=== PATIENT | male | born 1945 | race Caucasian/White ===

== ENCOUNTER 2017-10-31 15:29 | Inpatient (IN) | payer MEDICARE, OTHER ==
[~2017-10-31] VITALS: Ht 162.6 cm; Wt 80.6 kg
[2017-10-31] MEDS ORDERED: SODIUM CHLORIDE 0.9% 1,000 ML IVB ONE (15:46)
[2017-10-31 16:19] LABS: Basophils # (auto) 0 uL; Basophils % (auto) 0.6 % (0.0-2.0); Eosinophils # (auto) 0.1 uL; Eosinophils % (auto) 1.6 % (0.0-7.0); Hemoglobin 14.8 g/dL (13.5-17.5); Lymphocytes # (auto) 1.9 uL; Mean Corpuscular Hemoglobin 32.4 pg (28.0-32.0); Mean Corpuscular Hgb Conc. 33.5 g/dL (32.0-36.0); Mean Corpuscular Volume 96.7 fL (80.0-100.0); Monocytes # (auto) 0.6 uL; Monocytes % (auto) 9.8 % (0.0-12.0); Neutrophils # (auto) 3.9 uL; Nucleated Red Blood Cells % 0.1 %; Platelet Count (auto) 235 10^3/uL (140-450); Red Blood Cells 4.55 10^6/uL (4.5-5.90); Red Cell Distribution Width 14.2 % (11.8-14.3); White Blood Cell 6.6 10^3/uL (4.4-10.8)
[2017-10-31 16:38] LABS: Albumin 3.9 g/dL (3.4-5.0); BUN/Creatinine Ratio 15.8; Bilirubin, Total 0.2 mg/dL (0.2-1.0); Magnesium 2.3 mg/dL (1.6-2.6); Potassium 4.2 mmol/L (3.5-5.1); Total Protein 7.1 g/dL (6.4-8.2)
[2017-10-31 17:25] LABS: Calcium 9.2 mg/dL (8.5-10.1)
[2017-10-31 17:28] LABS: INR 0.95 (0.9-1.15); Partial Thromboplastin Time 26.6 sec (23.78-33.04); Prothrombin Time 10.2 sec (9.27-12.13)
[2017-10-31] MEDS ORDERED: LORazepam 0.5 MG TAB PO PRN (18:30)
[2017-10-31 18:34] LABS: Alcohol, Urine < 3.0 mg/dL (0-5); Amphetamine Screen, Urine NEGATIVE (NEGATIVE); Barbiturate Scree,Urine NEGATIVE (NEGATIVE); Benzodiazephine Screen, Urine NEGATIVE (NEGATIVE); Cannabinoid Screen, Urine POSITIVE (NEGATIVE); Cocaine Screen, Urine NEGATIVE (NEGATIVE); Opiate Scree,Urine NEGATIVE (NEGATIVE); Phencyclidine Screen, Urine NEGATIVE (NEGATIVE)
[2017-10-31] MEDS ORDERED: TEMAZEPAM 15 MG CAP PO PRN (18:45)
[2017-10-31] MEDS ORDERED: ACETAMINOPHEN 325 MG TAB PO PRN (18:45)
[2017-10-31] MEDS ORDERED: LORazepam 2MG/ML-1ML VIAL IV PRN ×2 (18:45→21:45)
[2017-10-31] MEDS ORDERED: HYDROcodone-ACET 5/325MG TAB PO PRN (18:45)
[2017-10-31] MEDS ORDERED: NITROGLYCERIN 0.4 MG SL TAB SL PRN (18:45)
[2017-10-31] MEDS ORDERED: DOCUSATE SOD 100 MG CAP PO PRN (18:45)
[2017-10-31] MEDS ORDERED: ONDANSETRON HCL 4 MG/2 ML VIAL IV PRN (18:45)
[2017-10-31] MEDS ORDERED: MORPHINE SULF INJ 2 MG/ML SYRINGE 1ML IV PRN (18:45)
[2017-10-31] MEDS: CHANTIX 1 MG PO SCH (19:00)
[2017-10-31] MEDS ORDERED: HALOPERIDOL LACTATE 5 MG/ML INJ VIAL IV PRN (21:45)
[2017-10-31 22:00] VITALS: BP 126/84
[2017-10-31] MEDS ORDERED: DONEPEZIL HYDROCHLORIDE 5 MG TAB PO SCH (22:00)
[2017-10-31] MEDS ORDERED: QUEtiapine FUMARATE 25 MG TAB PO SCH (22:00)
[2017-10-31] MEDS ORDERED: LEVOTHYROXINE SODIUM 25 MCG TAB PO SCH (22:00)
[2017-10-31] MEDS: MEMANTINE HCL 5 MG TAB PO SCH (22:05)
[2017-10-31] MEDS: SODIUM CHLOR 0.9% PF (SALINE LOCK) 10ML VIAL/SYR IV SCH (22:07)
[2017-10-31] MEDS ORDERED: LEVO25TA6 PO (23:13)
[2017-10-31] MEDS ORDERED: OLAN10TA29 PO (23:13)
[2017-10-31] MEDS ORDERED: ALBU0.08 HHN (23:13)
[2017-10-31] MEDS ORDERED: MEMA1CAP2 PO (23:13)
[2017-10-31] MEDS ORDERED: LORA1TAB12 PO (23:13)
[2017-10-31] MEDS ORDERED: ALBU0.084 NEB (23:13)
[2017-10-31] MEDS ORDERED: VARE1TAB PO (23:13)
[2017-10-31] MEDS ORDERED: FLUT100I IN (23:13)
[2017-11-01 04:38] VITALS: BP 128/67
[2017-11-01] MEDS: SODIUM CHLOR 0.9% PF (SALINE LOCK) 10ML VIAL/SYR IV SCH ×2 (06:28→14:26)
[2017-11-01 06:41] LABS: Basophils # (auto) 0 uL; Basophils % (auto) 0.4 % (0.0-2.0); Eosinophils # (auto) 0.1 uL; Eosinophils % (auto) 1.8 % (0.0-7.0); Hematocrit 41.2 % (41.0-53.0); Hemoglobin 14.3 g/dL (13.5-17.5); Lymphocytes # (auto) 1.7 uL; Lymphocytes % (auto) 29.4 % (10.0-50.0); Mean Corpuscular Hemoglobin 33.2 pg (28.0-32.0); Mean Corpuscular Hgb Conc. 34.6 g/dL (32.0-36.0); Mean Corpuscular Volume 96.1 fL (80.0-100.0); Monocytes # (auto) 0.6 uL; Neutrophils # (auto) 3.4 uL; Neutrophils % (auto) 58.4 % (37.0-80.0); Nucleated Red Blood Cells % 0.2 %; Platelet Count (auto) 212 10^3/uL (140-450); Red Blood Cells 4.29 10^6/uL (4.5-5.90); Red Cell Distribution Width 14.2 % (11.8-14.3); White Blood Cell 5.8 10^3/uL (4.4-10.8)
[2017-11-01 06:55] LABS: Potassium 3.9 mmol/L (3.5-5.1)
[2017-11-01 07:00] LABS: Albumin 3.4 g/dL (3.4-5.0); BUN/Creatinine Ratio 16.1; Calcium 8.6 mg/dL (8.5-10.1)
[2017-11-01 07:02] LABS: Bilirubin, Total 0.3 mg/dL (0.2-1.0); Total Protein 6.3 g/dL (6.4-8.2)
[2017-11-01 08:53] VITALS: BP 103/51
[2017-11-01] MEDS ORDERED: OLANZapine 5 MG TAB PO SCH (10:00)
[2017-11-01] MEDS ORDERED: LUTEIN PO SCH (10:00)
[2017-11-01] MEDS ORDERED: DONEPEZIL PO SCH ×2 (10:00→22:00)
[2017-11-01] MEDS ORDERED: MEMANTINE PO SCH ×2 (10:00→22:00)
[2017-11-01] MEDS ORDERED: FLUTICASONE VILANTEROL IN SCH (10:00)
[2017-11-01] MEDS ORDERED: MULTIPLE VITAMIN TAB PO SCH (10:00)
[2017-11-01] MEDS: MEMANTINE HCL 5 MG TAB PO SCH (10:12)
[2017-11-01] MEDS: CHANTIX 1 MG PO SCH (11:01)
[2017-11-01 12:56] VITALS: BP 113/73
[2017-11-01 16:49] VITALS: BP 113/73
== END 2017-11-01 19:23 | disposition home health service (06) | DRG 101 ==
LOC: EDBD 15:29 → ER 15:33 → TELE 15:34 → TELE-WESTW 20:00
PROVIDERS: ADMIT Internal Medicine; ATTEND Internal Medicine
DX: G40.909 Epilepsy, unspecified, not intractable, without status epilepticus (principal); R55 Syncope and collapse; E03.9 Hypothyroidism, unspecified; F02.80 Dementia in other diseases classified elsewhere, unspecified severity, without behavioral disturbance, psychotic disturbance, mood disturbance, and anxiety; G30.9 Alzheimer's disease, unspecified; I70.0 Atherosclerosis of aorta; J44.9 Chronic obstructive pulmonary disease, unspecified; N18.3 Chronic kidney disease, stage 3 (moderate); F29 Unspecified psychosis not due to a substance or known physiological condition; Z79.899 Other long term (current) drug therapy; Z87.891 Personal history of nicotine dependence
CPT/HCPCS: 36415; 70450; 70551; 71045; 80053; 80307; 83735; 85025; 85610; 85730; 93005; 93306; 93886; 94761; 95819; 96360

== ENCOUNTER 2020-06-19 07:23 | Inpatient (IN) | payer OTHER ==
[~2020-06-19] VITALS: Ht 160 cm; Wt 75.8 kg
[~2020-06-19 07:23] MED LIST: ALBU0.08 HHN; ALBU0.084 NEB; FLUT100I IN; LEVO25TA6 PO; LORA1TAB23 PO; MEMA1CAP2 PO; OLAN1TAB19 PO; VARE1TAB PO
[2020-06-19] MEDS ORDERED: ACETAMINOPHEN 650 MG RECT SUPP PR ONE ×2 (08:06→08:15)
[2020-06-19 08:16] LABS: Basophils # (auto) 0 10 ^3/uL (0-0.2); Basophils % (auto) 0.2 % (0.0-2.0); Eosinophils # (auto) 0 10 ^3/uL (0-0.8); Eosinophils % (auto) 0.1 % (0.0-7.0); Hemoglobin 15.9 g/dL (13.5-17.5); Lymphocytes # (auto) 1.2 10 ^3/uL (0.4-5.4); Lymphocytes % (auto) 10.1 % (10.0-50.0); Mean Corpuscular Hemoglobin 30.9 pg (28.0-32.0); Mean Corpuscular Hgb Conc. 33.7 g/dL (32.0-36.0); Mean Corpuscular Volume 91.5 fL (80.0-100.0); Monocytes # (auto) 1.2 10 ^3/uL (0-1.3); Monocytes % (auto) 10.5 % (0.0-12.0); Neutrophils # (auto) 9.4 10 ^3/uL (1.6-8.6); Neutrophils % (auto) 79.1 % (37.0-80.0); Platelet Count (auto) 322 10^3/uL (140-450); Red Blood Cells 5.14 10^6/uL (4.5-5.90); White Blood Cell 11.8 10^3/uL (4.4-10.8)
[2020-06-19 08:32] LABS: Urine Bacteria NONE SEEN /hpf (None Seen); Urine Blood TRACE /uL (Negative); Urine Specific Gravity 1.026 (1.001-1.035); Urine WBC 2 /hpf (0 - 3)
[2020-06-19 08:39] LABS: Albumin 3.6 g/dL (3.4-5.0); Anion Gap 9 (5-15); Blood Urea Nitrogen 11 mg/dL (7-18); Carbon Dioxide 28 mmol/L (21-32); Chloride 102 mmol/L (98-107); Glucose 114 mg/dL (74-106); Sodium 139 mmol/L (136-145)
[2020-06-19 08:40] LABS: Alanine Aminotransferase 25 U/L (16-61); Aspartate Aminotransferase 17 U/L (15-37); BUN/Creatinine Ratio 8.9; GFR African American 74 mL/min; GFR Non-African American 61 mL/min
[2020-06-19 08:50] LABS: Alkaline Phosphatase 116 U/L (45-117); Bilirubin, Total 0.7 mg/dL (0.2-1.0); Total Protein 7.4 g/dL (6.4-8.2)
[2020-06-19] MEDS ORDERED: NITROGLYCERIN 0.4 MG SL TAB SL PRN (11:30)
[2020-06-19] MEDS ORDERED: ACETAMINOPHEN 325 MG TAB PO PRN (11:30)
[2020-06-19] MEDS ORDERED: ONDANSETRON HCL 4 MG/2 ML VIAL IV PRN (11:30)
[2020-06-19] MEDS ORDERED: HYDROcodone-ACET 5/325MG TAB PO PRN (11:30)
[2020-06-19] MEDS ORDERED: MORPHINE SULF INJ 2 MG/ML SYRINGE 1ML IV PRN ×2 (11:30)
[2020-06-19] MEDS ORDERED: AZITHROMYCIN 500MG/ 250ML 250 ML IV ONE (11:45)
[2020-06-19] MEDS ORDERED: FAMOTIDINE 20 MG TAB PO ONE (11:45)
[2020-06-19] MEDS ORDERED: ENOXAPARIN SOD 40 MG/0.4 ML SYRINGE SC ONE (11:45)
[2020-06-19] MEDS ORDERED: cefTRIAXone 1GM/50ML D5W 50 ML IV ONE (11:45)
[2020-06-19] MEDS: methylPREDNISolone SOD SUCC 40 MG/ML VL IV SCH ×2 (14:17→22:43)
[2020-06-19 15:00] VITALS: BP 137/74
[2020-06-19] MEDS ORDERED: VANCOMYCIN PER PHARMACY 0 MG IV SCH (15:30)
[2020-06-19] MEDS ORDERED: VANCOMYCIN 750mg/250ml 250 ML IV SCH (18:00)
[2020-06-19 19:11] VITALS: BP 106/63
[2020-06-19] MEDS: FAMOTIDINE 20 MG TAB PO SCH (22:43)
[2020-06-19] MEDS: MEMANTINE HCL 5 MG TAB PO SCH (22:43)
[2020-06-19] MEDS: DONEPEZIL HYDROCHLORIDE 5 MG TAB PO SCH (22:43)
[2020-06-19 23:46] VITALS: BP 133/79
[2020-06-20 02:09] VITALS: BP 97/68
[2020-06-20 05:57] LABS: Basophils # (auto) 0 10 ^3/uL (0-0.2); Basophils % (auto) 0.1 % (0.0-2.0); Eosinophils # (auto) 0 10 ^3/uL (0-0.8); Hematocrit 42.5 % (41.0-53.0); Hemoglobin 14.6 g/dL (13.5-17.5); Lymphocytes # (auto) 0.8 10 ^3/uL (0.4-5.4); Lymphocytes % (auto) 6.4 % (10.0-50.0); Mean Corpuscular Hemoglobin 31.2 pg (28.0-32.0); Mean Corpuscular Hgb Conc. 34.3 g/dL (32.0-36.0); Monocytes # (auto) 0.7 10 ^3/uL (0-1.3); Monocytes % (auto) 5.8 % (0.0-12.0); Neutrophils # (auto) 11.3 10 ^3/uL (1.6-8.6); Neutrophils % (auto) 87.7 % (37.0-80.0); Nucleated Red Blood Cells % 0.6 %; Platelet Count (auto) 311 10^3/uL (140-450); Red Blood Cells 4.67 10^6/uL (4.5-5.90); Red Cell Distribution Width 13.8 % (11.8-14.3); White Blood Cell 12.9 10^3/uL (4.4-10.8)
[2020-06-20 06:15] LABS: Calcium 9.2 mg/dL (8.5-10.1); Potassium 4.3 mmol/L (3.5-5.1)
[2020-06-20 06:19] LABS: Albumin 2.9 g/dL (3.4-5.0); BUN/Creatinine Ratio 16.7; Magnesium 2.3 mg/dL (1.6-2.6)
[2020-06-20 06:20] VITALS: BP 117/66
[2020-06-20 06:22] LABS: Bilirubin, Total 0.5 mg/dL (0.2-1.0); Total Protein 6.8 g/dL (6.4-8.2)
[2020-06-20] MEDS: methylPREDNISolone SOD SUCC 40 MG/ML VL IV SCH ×3 (06:38→22:41)
[2020-06-20] MEDS ORDERED: LEVO25TA6 PO (07:25)
[2020-06-20] MEDS ORDERED: QUET100T46 PO (07:25)
[2020-06-20] MEDS ORDERED: MEMA10TA PO (07:25)
[2020-06-20] MEDS ORDERED: OLAN2.5T38 PO (07:25)
[2020-06-20] MEDS ORDERED: LORA1TAB23 PO (07:25)
[2020-06-20] MEDS ORDERED: BACL10TA PO (07:25)
[2020-06-20] MEDS ORDERED: DONE1TAB88 PO (07:25)
[2020-06-20] MEDS ORDERED: TURM500C3 PO (07:25)
[2020-06-20 08:00] VITALS: BP 121/72
[2020-06-20] MEDS: FAMOTIDINE 20 MG TAB PO SCH ×2 (09:27→22:41)
[2020-06-20] MEDS: MEMANTINE HCL 5 MG TAB PO SCH ×2 (09:28→22:41)
[2020-06-20] MEDS: AZITHROMYCIN 500MG/ 250ML 250 ML IV SCH (09:38)
[2020-06-20] MEDS: ENOXAPARIN SOD 40 MG/0.4 ML SYRINGE SC SCH (09:38)
[2020-06-20] MEDS: cefTRIAXone 1GM/50ML D5W 50 ML IV SCH (09:39)
[2020-06-20] MEDS: VANCOMYCIN 750mg/250ml 250 ML IV SCH ×2 (13:27→23:55)
[2020-06-20 16:00] VITALS: BP 121/78
[2020-06-20 22:00] VITALS: BP 105/68
[2020-06-20] MEDS: DONEPEZIL HYDROCHLORIDE 5 MG TAB PO SCH (22:41)
[2020-06-21 05:21] VITALS: BP 107/59
[2020-06-21] MEDS: methylPREDNISolone SOD SUCC 40 MG/ML VL IV SCH ×3 (05:22→22:04)
[2020-06-21 07:30] LABS: Basophils # (auto) 0 10 ^3/uL (0-0.2); Basophils % (auto) 0.1 % (0.0-2.0); Eosinophils # (auto) 0 10 ^3/uL (0-0.8); Hematocrit 43.2 % (41.0-53.0); Hemoglobin 14.7 g/dL (13.5-17.5); Lymphocytes # (auto) 0.6 10 ^3/uL (0.4-5.4); Lymphocytes % (auto) 6.2 % (10.0-50.0); Mean Corpuscular Hgb Conc. 34.1 g/dL (32.0-36.0); Monocytes # (auto) 0.5 10 ^3/uL (0-1.3); Monocytes % (auto) 5.2 % (0.0-12.0); Neutrophils # (auto) 8.7 10 ^3/uL (1.6-8.6); Neutrophils % (auto) 88.5 % (37.0-80.0); Nucleated Red Blood Cells % 0.1 %; Platelet Count (auto) 348 10^3/uL (140-450); Red Blood Cells 4.74 10^6/uL (4.5-5.90); Red Cell Distribution Width 13.7 % (11.8-14.3); White Blood Cell 9.8 10^3/uL (4.4-10.8)
[2020-06-21 07:49] LABS: Albumin 2.7 g/dL (3.4-5.0); Calcium 8.7 mg/dL (8.5-10.1); Magnesium 2.6 mg/dL (1.6-2.6); Potassium 3.9 mmol/L (3.5-5.1)
[2020-06-21 07:53] LABS: BUN/Creatinine Ratio 23.9; Bilirubin, Total 0.4 mg/dL (0.2-1.0); Total Protein 6.8 g/dL (6.4-8.2)
[2020-06-21 08:00] VITALS: BP 110/64
[2020-06-21] MEDS: FAMOTIDINE 20 MG TAB PO SCH ×2 (10:08→22:04)
[2020-06-21] MEDS: MEMANTINE HCL 5 MG TAB PO SCH ×2 (10:08→22:04)
[2020-06-21] MEDS: ENOXAPARIN SOD 40 MG/0.4 ML SYRINGE SC SCH (10:08)
[2020-06-21] MEDS: AZITHROMYCIN 500MG/ 250ML 250 ML IV SCH (10:08)
[2020-06-21] MEDS: cefTRIAXone 1GM/50ML D5W 50 ML IV SCH (10:09)
[2020-06-21] MEDS: VANCOMYCIN 750mg/250ml 250 ML IV SCH (12:13)
[2020-06-21 16:28] VITALS: BP 95/52
[2020-06-21] MEDS: HALOPERIDOL LACTATE 5 MG/ML INJ VIAL IM PRN (18:50)
[2020-06-21 22:00] VITALS: BP 99/53
[2020-06-21] MEDS: DONEPEZIL HYDROCHLORIDE 5 MG TAB PO SCH (22:04)
[2020-06-22 05:00] VITALS: BP 109/48
[2020-06-22] MEDS: methylPREDNISolone SOD SUCC 40 MG/ML VL IV SCH ×3 (05:54→21:53)
[2020-06-22 07:30] LABS: Basophils # (auto) 0 10 ^3/uL (0-0.2); Basophils % (auto) 0.1 % (0.0-2.0); Eosinophils # (auto) 0 10 ^3/uL (0-0.8); Hematocrit 39.6 % (41.0-53.0); Hemoglobin 13.4 g/dL (13.5-17.5); Lymphocytes # (auto) 0.7 10 ^3/uL (0.4-5.4); Lymphocytes % (auto) 7.4 % (10.0-50.0); Mean Corpuscular Hemoglobin 30.6 pg (28.0-32.0); Mean Corpuscular Hgb Conc. 33.8 g/dL (32.0-36.0); Mean Corpuscular Volume 90.5 fL (80.0-100.0); Monocytes # (auto) 0.6 10 ^3/uL (0-1.3); Monocytes % (auto) 6.3 % (0.0-12.0); Neutrophils # (auto) 8.2 10 ^3/uL (1.6-8.6); Neutrophils % (auto) 86.2 % (37.0-80.0); Platelet Count (auto) 344 10^3/uL (140-450); Red Blood Cells 4.37 10^6/uL (4.5-5.90); Red Cell Distribution Width 13.7 % (11.8-14.3); White Blood Cell 9.5 10^3/uL (4.4-10.8)
[2020-06-22 07:49] LABS: Albumin 2.6 g/dL (3.4-5.0); Calcium 8.7 mg/dL (8.5-10.1); Magnesium 2.5 mg/dL (1.6-2.6)
[2020-06-22 07:53] LABS: Bilirubin, Total 0.3 mg/dL (0.2-1.0); Total Protein 5.8 g/dL (6.4-8.2)
[2020-06-22 08:00] VITALS: BP 115/73
[2020-06-22] MEDS: cefTRIAXone 1GM/50ML D5W 50 ML IV SCH (10:00)
[2020-06-22] MEDS: ENOXAPARIN SOD 40 MG/0.4 ML SYRINGE SC SCH (10:00)
[2020-06-22] MEDS: MEMANTINE HCL 5 MG TAB PO SCH ×2 (10:03→22:00)
[2020-06-22] MEDS: FAMOTIDINE 20 MG TAB PO SCH ×2 (10:04→22:00)
[2020-06-22] MEDS: HALOPERIDOL LACTATE 5 MG/ML INJ VIAL IM PRN (10:16)
[2020-06-22] MEDS: VANCOMYCIN 750mg/250ml 250 ML IV SCH ×2 (14:17)
[2020-06-22] MEDS: AZITHROMYCIN 500MG/ 250ML 250 ML IV SCH (15:30)
[2020-06-22 16:00] VITALS: BP 163/90
[2020-06-22] MEDS ORDERED: MIRTAZAPINE 30 MG TAB PO ONE (16:00)
[2020-06-22] MEDS: DONEPEZIL HYDROCHLORIDE 5 MG TAB PO SCH (22:00)
[2020-06-22 22:11] VITALS: BP 134/77
[2020-06-23] MEDS: VANCOMYCIN 750mg/250ml 250 ML IV SCH ×2 (01:52→14:41)
[2020-06-23 03:51] VITALS: BP 112/64
[2020-06-23] MEDS: methylPREDNISolone SOD SUCC 40 MG/ML VL IV SCH ×3 (06:18→22:32)
[2020-06-23 06:32] LABS: Basophils # (auto) 0 10 ^3/uL (0-0.2); Eosinophils # (auto) 0 10 ^3/uL (0-0.8); Hematocrit 41.8 % (41.0-53.0); Hemoglobin 14.5 g/dL (13.5-17.5); Lymphocytes # (auto) 0.7 10 ^3/uL (0.4-5.4); Lymphocytes % (auto) 9.8 % (10.0-50.0); Mean Corpuscular Hemoglobin 31.3 pg (28.0-32.0); Mean Corpuscular Hgb Conc. 34.8 g/dL (32.0-36.0); Monocytes # (auto) 0.5 10 ^3/uL (0-1.3); Monocytes % (auto) 7.2 % (0.0-12.0); Neutrophils # (auto) 5.6 10 ^3/uL (1.6-8.6); Platelet Count (auto) 363 10^3/uL (140-450); Red Blood Cells 4.64 10^6/uL (4.5-5.90); Red Cell Distribution Width 13.6 % (11.8-14.3); White Blood Cell 6.8 10^3/uL (4.4-10.8)
[2020-06-23 06:41] LABS: Albumin 2.6 g/dL (3.4-5.0); Calcium 8.8 mg/dL (8.5-10.1); Magnesium 2.7 mg/dL (1.6-2.6); Potassium 4.2 mmol/L (3.5-5.1)
[2020-06-23 06:43] LABS: BUN/Creatinine Ratio 24.5
[2020-06-23] MEDS: HALOPERIDOL LACTATE 5 MG/ML INJ VIAL IM PRN (06:44)
[2020-06-23 06:55] LABS: Bilirubin, Total 0.3 mg/dL (0.2-1.0)
[2020-06-23] MEDS: ENOXAPARIN SOD 40 MG/0.4 ML SYRINGE SC SCH (10:45)
[2020-06-23] MEDS: cefTRIAXone 1GM/50ML D5W 50 ML IV SCH (10:45)
[2020-06-23] MEDS: MEMANTINE HCL 5 MG TAB PO SCH ×2 (10:45→22:32)
[2020-06-23] MEDS: FAMOTIDINE 20 MG TAB PO SCH ×2 (10:45→22:33)
[2020-06-23 10:46] VITALS: BP 118/61
[2020-06-23] MEDS: AZITHROMYCIN 500MG/ 250ML 250 ML IV SCH (12:23)
[2020-06-23 16:00] VITALS: BP 108/54
[2020-06-23 22:08] VITALS: BP 115/57
[2020-06-23] MEDS: DONEPEZIL HYDROCHLORIDE 5 MG TAB PO SCH (22:32)
[2020-06-24] MEDS: VANCOMYCIN 750mg/250ml 250 ML IV SCH ×2 (01:43→14:41)
[2020-06-24 05:23] VITALS: BP 112/72
[2020-06-24] MEDS: methylPREDNISolone SOD SUCC 40 MG/ML VL IV SCH ×3 (05:50→23:06)
[2020-06-24 07:02] LABS: Albumin 2.5 g/dL (3.4-5.0); Magnesium 2.7 mg/dL (1.6-2.6); Potassium 4.4 mmol/L (3.5-5.1)
[2020-06-24 07:06] LABS: BUN/Creatinine Ratio 23.6; Bilirubin, Total 0.3 mg/dL (0.2-1.0); Total Protein 6.1 g/dL (6.4-8.2)
[2020-06-24 07:08] LABS: Basophils # (auto) 0 10 ^3/uL (0-0.2); Basophils % (auto) 0.1 % (0.0-2.0); Eosinophils # (auto) 0 10 ^3/uL (0-0.8); Hematocrit 43.8 % (41.0-53.0); Hemoglobin 14.9 g/dL (13.5-17.5); Lymphocytes # (auto) 1.1 10 ^3/uL (0.4-5.4); Lymphocytes % (auto) 15.5 % (10.0-50.0); Mean Corpuscular Hemoglobin 30.7 pg (28.0-32.0); Mean Corpuscular Hgb Conc. 34.2 g/dL (32.0-36.0); Mean Corpuscular Volume 89.8 fL (80.0-100.0); Monocytes # (auto) 0.5 10 ^3/uL (0-1.3); Monocytes % (auto) 7.4 % (0.0-12.0); Neutrophils # (auto) 5.3 10 ^3/uL (1.6-8.6); Nucleated Red Blood Cells % 0.1 %; Platelet Count (auto) 413 10^3/uL (140-450); Red Blood Cells 4.87 10^6/uL (4.5-5.90); Red Cell Distribution Width 13.3 % (11.8-14.3); White Blood Cell 6.9 10^3/uL (4.4-10.8)
[2020-06-24 07:47] VITALS: BP 116/60
[2020-06-24] MEDS: cefTRIAXone 1GM/50ML D5W 50 ML IV SCH (08:47)
[2020-06-24] MEDS: ENOXAPARIN SOD 40 MG/0.4 ML SYRINGE SC SCH (10:00)
[2020-06-24] MEDS: AZITHROMYCIN 500MG/ 250ML 250 ML IV SCH (10:27)
[2020-06-24] MEDS: MEMANTINE HCL 5 MG TAB PO SCH ×2 (10:28→22:00)
[2020-06-24] MEDS: FAMOTIDINE 20 MG TAB PO SCH ×2 (10:28→22:00)
[2020-06-24 16:00] VITALS: BP 113/77
[2020-06-24 22:00] VITALS: BP 127/77
[2020-06-24] MEDS: DONEPEZIL HYDROCHLORIDE 5 MG TAB PO SCH (22:00)
[2020-06-25] MEDS: VANCOMYCIN 750mg/250ml 250 ML IV SCH ×2 (02:22→14:16)
[2020-06-25 05:00] VITALS: BP 118/67
[2020-06-25] MEDS: methylPREDNISolone SOD SUCC 40 MG/ML VL IV SCH ×3 (06:00→20:24)
[2020-06-25 06:54] LABS: Basophils # (auto) 0 10 ^3/uL (0-0.2); Basophils % (auto) 0.1 % (0.0-2.0); Eosinophils # (auto) 0 10 ^3/uL (0-0.8); Hematocrit 45.2 % (41.0-53.0); Hemoglobin 15.6 g/dL (13.5-17.5); Lymphocytes # (auto) 0.9 10 ^3/uL (0.4-5.4); Lymphocytes % (auto) 13.8 % (10.0-50.0); Mean Corpuscular Hemoglobin 31.1 pg (28.0-32.0); Mean Corpuscular Hgb Conc. 34.5 g/dL (32.0-36.0); Mean Corpuscular Volume 90.2 fL (80.0-100.0); Monocytes # (auto) 0.3 10 ^3/uL (0-1.3); Monocytes % (auto) 5.4 % (0.0-12.0); Neutrophils # (auto) 5.2 10 ^3/uL (1.6-8.6); Neutrophils % (auto) 80.7 % (37.0-80.0); Nucleated Red Blood Cells % 0.1 %; Platelet Count (auto) 340 10^3/uL (140-450); Red Blood Cells 5.02 10^6/uL (4.5-5.90); Red Cell Distribution Width 13.5 % (11.8-14.3); White Blood Cell 6.5 10^3/uL (4.4-10.8)
[2020-06-25 07:16] LABS: BUN/Creatinine Ratio 24.5; Calcium 8.1 mg/dL (8.5-10.1); Magnesium 2.8 mg/dL (1.6-2.6); Potassium 4.4 mmol/L (3.5-5.1)
[2020-06-25 08:00] VITALS: BP 124/70
[2020-06-25] MEDS: cefTRIAXone 1GM/50ML D5W 50 ML IV SCH (10:16)
[2020-06-25] MEDS: MEMANTINE HCL 5 MG TAB PO SCH ×2 (10:16→20:24)
[2020-06-25] MEDS: FAMOTIDINE 20 MG TAB PO SCH ×2 (10:16→20:24)
[2020-06-25] MEDS: ENOXAPARIN SOD 40 MG/0.4 ML SYRINGE SC SCH (10:21)
[2020-06-25] MEDS: AZITHROMYCIN 500MG/ 250ML 250 ML IV SCH (12:11)
[2020-06-25 16:01] VITALS: BP 100/67
[2020-06-25] MEDS: DONEPEZIL HYDROCHLORIDE 5 MG TAB PO SCH (20:24)
[2020-06-25 22:00] VITALS: BP 116/67
[2020-06-26] MEDS: VANCOMYCIN 750mg/250ml 250 ML IV SCH ×2 (02:00→14:00)
[2020-06-26 05:00] VITALS: BP 89/41
[2020-06-26] MEDS: methylPREDNISolone SOD SUCC 40 MG/ML VL IV SCH ×2 (05:30→14:00)
[2020-06-26 08:00] VITALS: BP 107/55
[2020-06-26] MEDS: cefTRIAXone 1GM/50ML D5W 50 ML IV SCH (10:14)
[2020-06-26] MEDS: MEMANTINE HCL 5 MG TAB PO SCH (10:14)
[2020-06-26] MEDS: FAMOTIDINE 20 MG TAB PO SCH (10:15)
[2020-06-26] MEDS: ENOXAPARIN SOD 40 MG/0.4 ML SYRINGE SC SCH (10:15)
[2020-06-26] MEDS: AZITHROMYCIN 500MG/ 250ML 250 ML IV SCH (13:55)
[2020-06-26 16:00] VITALS: BP 107/56
== END 2020-06-26 16:00 | disposition hospice, inpatient (51) | DRG 871 ==
LOC: ER 07:23 → EDBD 07:23 → TELE 11:25 → TELE-EAST 06-20 04:35 → TELE-CENTR 06-22 10:40
PROVIDERS: ADMIT Internal Medicine; ATTEND Internal Medicine
PROC: 5A09357 Assistance with Respiratory Ventilation, Less than 24 Consecutive Hours, Continuous Positive Airway Pressure (ICD-10-PCS; principal; 2020-06-19)
DX: A41.9 Sepsis, unspecified organism (principal); J18.9 Pneumonia, unspecified organism; G93.41 Metabolic encephalopathy; J96.21 Acute and chronic respiratory failure with hypoxia; J44.1 Chronic obstructive pulmonary disease with (acute) exacerbation; E87.2 Acidosis; J44.0 Chronic obstructive pulmonary disease with (acute) lower respiratory infection; J98.11 Atelectasis; Z20.822 Contact with and (suspected) exposure to COVID-19; Z66 Do not resuscitate; F12.90 Cannabis use, unspecified, uncomplicated; F29 Unspecified psychosis not due to a substance or known physiological condition; E03.9 Hypothyroidism, unspecified; E88.09 Other disorders of plasma-protein metabolism, not elsewhere classified; F02.80 Dementia in other diseases classified elsewhere, unspecified severity, without behavioral disturbance, psychotic disturbance, mood disturbance, and anxiety; G30.9 Alzheimer's disease, unspecified; Z79.899 Other long term (current) drug therapy; Z87.891 Personal history of nicotine dependence; Z51.5 Encounter for palliative care
CPT/HCPCS: 36415; 36600; 70450; 71045; 80048; 80053; 80202; 81001; 82140; 82805; 83735; 84484; 85025; 87040; 87081; 87426; 93005; 93306; 93970; 94660; 96365; 96367; 96372; 97110; 97116; 97163; 97530; G0378; J0696